=== PATIENT | male | born 1960 | race Caucasian/White ===

== ENCOUNTER 2020-10-11 09:03 | Day surgery (SDC) | payer BC ==
[2020-10-11] MEDS ORDERED: Acetaminophen 500 MG TAB ONE (13:14)
[2020-10-11] MEDS ORDERED: diphenhydrAMINE 50 MG/ML VIAL IVP SCH (13:15)
[2020-10-11] MEDS ORDERED: CASIRIVIMAB 1,200 MG, IMDEVIMAB 1,200 MG in Sodium Chloride 0.9% 250 ML 250 ML IV SCH (13:15)
[2020-10-11] MEDS ORDERED: Acetaminophen 500 MG TAB PO SCH (13:15)
[2020-10-11] MEDS ORDERED: diphenhydrAMINE 50 MG/ML VIAL ONE (13:15)
== END 2020-10-11 16:15 | disposition home or self-care (01) ==
LOC: CSHSDC 09:03
PROVIDERS: ATTEND Family Medicine
DX: Z23 Encounter for immunization (principal); U07.1 COVID-19; I10 Essential (primary) hypertension
CPT/HCPCS: 96365; 96374; J1200; J7050; M0243; Q0243